=== PATIENT | female | born 1990 | race Caucasian/White ===

== ENCOUNTER 2022-06-16 20:32 | Inpatient (IN) | payer OTHER ==
[~2022-06-16 20:32] MED LIST: Acetaminophen 500 MG TAB PO PRN; Bupivacaine 0.25% HCL 30 ML VIAL ONE; Butorphanol Tartrate 1 MG/ML VIAL SLOW IVP PRN; Carboprost 250 MCG/ML AMP IM PRN; Diphenoxylate HCl/Atropine Tablet PO PRN; HYDROcodone/Acetaminophen 5/325 mg Tablet PO PRN; Ibuprofen 800 MG TAB PO PRN; Lidocaine 1% (PF) 30 ML VIAL SC PRN; Lidocaine 2% 10 ML INJ ONE; Misoprostol 200 MCG TAB PR PRN; NS w/ Oxytocin 30 units 500 ML IV SCH; Ondansetron PF 4 MG/2 ML Vial IVP PRN; Promethazine HCl 25 MG/ML VIAL IM PRN; hydrALAZINE 20 MG/ML VIAL SLOW IVP PRN
[2022-06-16 21:10] VITALS: BMI 36.7
[2022-06-16] MEDS: Lactated Ringer's 1,000 ML IV SCH (21:32)
[2022-06-16 21:46] LABS: Mean Corpuscular HGB CONC 33.3 g/dL (32.0-36.0); Mean Corpuscular Hemoglobin 29.3 pg (27.0-33.0); Mean Platelet Volume 12.3 fl (7.4-10.4); Platelet Count 176 10x3/uL (150-450); RBC Distribution Width 13.4 % (11.5-14.5); Red Blood Cell (RBC) Count 3.75 10x6/uL (3.90-5.03); White Blood Cell (WBC) Count 10.3 10x3/uL (3.5-10.5)
[2022-06-16] MEDS: Misoprostol 100 MCG TAB VAG SCH (22:37)
[2022-06-16 22:45] LABS: HBSAg Index 0.12 S/CO (0-0.99); Hep B Surf Ag Non-Reactive S/CO (NonReactive)
[2022-06-16 22:46] LABS: Syphilis Antibody Nonreactive (Nonreactive); Syphilis Antibody Index 0.03 S/CO (<1.00 Non-Reactive)
[2022-06-16 23:37] LABS: SARS-CoV-2 NAA Rapid Test Not Detected (NotDetected)
[2022-06-17] MEDS: Lactated Ringer's 1,000 ML IV SCH (02:28)
[2022-06-17] MEDS ORDERED: Ondansetron PF 4 MG/2 ML Vial IVP PRN ×4 (07:19→19:25)
[2022-06-17] MEDS ORDERED: ePHEDrine Sulfate 50 MG/10 ML VIAL SLOW IVP PRN (07:19)
[2022-06-17] MEDS ORDERED: Moisturizing Cream (Eucerin) 113 GM JAR TOP PRN ×3 (07:19→19:24)
[2022-06-17] MEDS ORDERED: Promethazine HCl 25 MG/ML VIAL IM PRN ×5 (07:19→19:25)
[2022-06-17] MEDS ORDERED: Naloxone HCl 0.4 mg/ml Vial IVP PRN ×6 (07:19→19:24)
[2022-06-17] MEDS ORDERED: diphenhydrAMINE 50 MG/ML VIAL IVP PRN ×4 (07:19→19:25)
[2022-06-17] MEDS ORDERED: Lactated Ringer's 500 ML IV PRN (07:19)
[2022-06-17] MEDS ORDERED: Acetaminophen 325 MG TAB PO PRN (07:19)
[2022-06-17] MEDS ORDERED: Fentanyl 2 mcg/Bup 0.1% Cadd 100 ML ONE (07:21)
[2022-06-17] MEDS ORDERED: Communication Order-Pharmacy FS SCH ×4 (07:30→19:30)
[2022-06-17] MEDS: Fentanyl 2 mcg/Bupivacaine 0.1% Cassette 100 ML EPIDURAL SCH ×2 (08:45→15:43)
[2022-06-17] MEDS ORDERED: Azithromycin 500 MG VIAL ONE (18:04)
[2022-06-17] MEDS ORDERED: CEFAZOLIN 2 GM VIAL ONE (18:05)
[2022-06-17] MEDS ORDERED: Morphine PF 10 MG/10 ML VIAL ONE (18:10)
[2022-06-17] MEDS ORDERED: Ketorolac Tromethamine 30 MG/ML VIAL ONE (18:11)
[2022-06-17] MEDS ORDERED: Ondansetron PF 4 MG/2 ML Vial ONE (18:11)
[2022-06-17] MEDS ORDERED: Dexamethasone 4 mg/ml Vial ONE (18:11)
[2022-06-17] MEDS ORDERED: Oxytocin 10 UNITS/ML VIAL ONE (18:11)
[2022-06-17] MEDS ORDERED: Fentanyl 100 MCG/2 ML VIAL ONE (18:12)
[2022-06-17] MEDS ORDERED: Phenylephrine 40 MG/NS 250 ML 250 ML ONE (18:20)
[2022-06-17] MEDS ORDERED: Succinylcholine 200 MG/10 ml SYRINGE FS ONE (18:29)
[2022-06-17] MEDS ORDERED: Famotidine/PF 20 mg/2ml Vial ONE (18:29)
[2022-06-17] MEDS ORDERED: PROPOFOL 20 ML ONE (18:29)
[2022-06-17] MEDS ORDERED: Methylergonovine 0.2 MG/ML VIAL ONE (18:43)
[2022-06-17] MEDS ORDERED: Misoprostol 200 MCG TAB ONE (18:44)
[2022-06-17] MEDS ORDERED: Carboprost 250 MCG/ML AMP ONE (18:44)
[2022-06-17] MEDS ORDERED: Ondansetron HCl/PF 4 MG/2 ML Vial IVP PRN ×2 (19:07→19:24)
[2022-06-17] MEDS ORDERED: Naloxone HCl 0.4 mg/ml Vial IV PRN ×3 (19:07→19:25)
[2022-06-17] MEDS ORDERED: Promethazine HCl 25 MG SUPP PR PRN ×2 (19:07→19:24)
[2022-06-17] MEDS ORDERED: Fentanyl 100 MCG/2 ML VIAL SLOW IVP PRN (19:07)
[2022-06-17 19:20] LABS: RapidComm Collect By 2NO.KRF; pH (Cord, venous) 7.274 (7.250-7.350)
[2022-06-17] MEDS ORDERED: diphenhydrAMINE 50 MG/ML VIAL IM PRN (19:25)
[2022-06-17] MEDS ORDERED: diphenhydrAMINE 25 MG CAP PO PRN (19:25)
[2022-06-17] MEDS ORDERED: HYDROmorphone 10 mg/100 ml CADD IVPB PRN (19:25)
[2022-06-17] MEDS ORDERED: Zolpidem Tartrate 5 MG TAB PO PRN (19:25)
[2022-06-17] MEDS ORDERED: Meperidine HCl/PF 25 MG/ML VIAL ONE (19:43)
[2022-06-17] MEDS ORDERED: HYDROmorphone/PF 10 MG in Sodium Chloride 0.9% 49 ML IVPB PRN (19:45)
[2022-06-17] MEDS ORDERED: Meperidine HCl/PF 25 MG/ML VIAL SLOW IVP PRN (21:00)
[2022-06-17] MEDS ORDERED: Methylergonovine 0.2 MG/ML VIAL IM PRN (22:56)
[2022-06-17] MEDS ORDERED: Simethicone Chewable 80 MG TAB PO PRN (22:56)
[2022-06-17] MEDS ORDERED: Boostrix 0.5 ML (Tdap) VIAL (>/=7 yrs of age) IM ONE (22:56)
[2022-06-17] MEDS ORDERED: HYDROcodone/Acetaminophen 5/325 mg Tablet PO PRN (22:56)
[2022-06-17] MEDS ORDERED: Ferrous Sulfate 325 MG TAB PO SCH (23:15)
[2022-06-17] MEDS ORDERED: Docusate 100 MG CAP PO SCH (23:15)
[2022-06-18] MEDS ORDERED: Ketorolac Tromethamine 30 MG/ML VIAL IVP PRN (01:00)
[2022-06-18 05:38] LABS: Hemoglobin 9.2 g/dL (12.0-15.5); Mean Corpuscular HGB CONC 33.5 g/dL (32.0-36.0); Mean Corpuscular Hemoglobin 29.6 pg (27.0-33.0); Mean Corpuscular Volume 88.4 fl (81.6-98.3); Mean Platelet Volume 13.6 fl (7.4-10.4); Platelet Count 173 10x3/uL (150-450); RBC Distribution Width 13.9 % (11.5-14.5); Red Blood Cell (RBC) Count 3.11 10x6/uL (3.90-5.03); White Blood Cell (WBC) Count 22.2 10x3/uL (3.5-10.5)
[2022-06-18] MEDS ORDERED: HYDROcodone/Acetaminophen 5/325 mg Tablet PO PRN ×2 (07:15)
[2022-06-18] MEDS: Lactated Ringer's 1,000 ML IV SCH (08:34)
[2022-06-18] MEDS: Misoprostol 100 MCG TAB VAG SCH ×4 (08:35→22:05)
[2022-06-18] MEDS: Ketorolac Tromethamine 30 MG/ML VIAL IVP PRN ×2 (09:57→15:55)
[2022-06-18] MEDS: Docusate 100 MG CAP PO SCH ×2 (09:58→21:34)
[2022-06-18] MEDS: Ferrous Sulfate 325 MG TAB PO SCH ×2 (09:58→21:33)
[2022-06-18] MEDS: Prenatal Vitamin 1 TAB PO SCH (09:58)
[2022-06-18] MEDS: HYDROcodone/Acetaminophen 5/325 mg Tablet PO PRN ×2 (12:22→21:39)
[2022-06-18] MEDS: Ibuprofen 800 MG TAB PO SCH (23:46)
[2022-06-19] MEDS: Misoprostol 100 MCG TAB VAG SCH ×4 (00:04→23:54)
[2022-06-19] MEDS ORDERED: Ibuprofen 800 MG TAB PO SCH (06:00)
[2022-06-19] MEDS: Ferrous Sulfate 325 MG TAB PO SCH ×2 (07:54→21:38)
[2022-06-19] MEDS: Prenatal Vitamin 1 TAB PO SCH (07:55)
[2022-06-19] MEDS: Docusate 100 MG CAP PO SCH ×2 (07:55→21:38)
[2022-06-19] MEDS: Ibuprofen 800 MG TAB PO SCH ×3 (07:55→23:52)
[2022-06-19] MEDS: HYDROcodone/Acetaminophen 5/325 mg Tablet PO PRN (07:56)
[2022-06-20] MEDS: Docusate 100 MG CAP PO SCH ×2 (07:54→22:48)
[2022-06-20] MEDS: Prenatal Vitamin 1 TAB PO SCH (07:54)
[2022-06-20] MEDS: Ibuprofen 800 MG TAB PO SCH ×3 (07:54→22:49)
[2022-06-20] MEDS: Ferrous Sulfate 325 MG TAB PO SCH ×2 (07:54→22:49)
[2022-06-20] MEDS: Misoprostol 100 MCG TAB VAG SCH (10:02)
[2022-06-20] MEDS: HYDROcodone/Acetaminophen 5/325 mg Tablet PO PRN ×2 (14:58→23:51)
[2022-06-21] MEDS: Misoprostol 100 MCG TAB VAG SCH ×3 (02:19→08:38)
[2022-06-21] MEDS: Ibuprofen 800 MG TAB PO SCH (05:24)
[2022-06-21 08:13] VITALS: BP 141/77; TEMP 98.5
[2022-06-21] MEDS: Prenatal Vitamin 1 TAB PO SCH (08:37)
[2022-06-21] MEDS: Ferrous Sulfate 325 MG TAB PO SCH (08:37)
[2022-06-21] MEDS: Docusate 100 MG CAP PO SCH (08:37)
[2022-06-21] MEDS: HYDROcodone/Acetaminophen 5/325 mg Tablet PO PRN (10:41)
== END 2022-06-21 12:10 | disposition home or self-care (01) | DRG 787 ==
LOC: CSHLD 20:32 → CSHPP 06-17 22:30
PROVIDERS: ADMIT Obstetrics & Gynecology; ATTEND Obstetrics & Gynecology
PROC: 3E033VJ Introduction of Other Hormone into Peripheral Vein, Percutaneous Approach (ICD-10-PCS; principal; 2022-06-17)
PROC: 10D00Z1 Extraction of Products of Conception, Low, Open Approach (ICD-10-PCS; 2022-06-17)
PROC: 3E0DXGC Introduction of Other Therapeutic Substance into Mouth and Pharynx, External Approach (ICD-10-PCS; 2022-06-17)
PROC: 10907ZC Drainage of Amniotic Fluid, Therapeutic from Products of Conception, Via Natural or Artificial Opening (ICD-10-PCS; 2022-06-17)
PROC: 3E0334Z Introduction of Serum, Toxoid and Vaccine into Peripheral Vein, Percutaneous Approach (ICD-10-PCS; 2022-06-18)
DX: O63.1 Prolonged second stage (of labor) (principal); O72.1 Other immediate postpartum hemorrhage; O99.214 Obesity complicating childbirth; E66.9 Obesity, unspecified; Z3A.40 40 weeks gestation of pregnancy; Z37.0 Single live birth; Z90.49 Acquired absence of other specified parts of digestive tract
CPT/HCPCS: 36415; 51702; 82805; 85027; 85461; 86780; 86850; 86900; 86901; 87340; 90384; 96372; J0595; J1100; J1170; J1885; J2175; J2274; J2405; J2590; J2704; J3010; J3490; J7120; S0020; S0028; U0002